=== PATIENT | male | born 1970 | race Two or more races ===

== ENCOUNTER 2021-03-19 00:41 | Inpatient (IN) | payer MEDICAID ==
[~2021-03-19] VITALS: Ht 172.7 cm; Wt 86.2 kg
[2021-03-19] VITALS (7 sets, daily range): BP systolic 107–130; BP diastolic 59–75
[2021-03-19] MEDS ORDERED: MAG HYDROX/AL HYDROX/SIMETH 30 ML UDC PO PRN (03:00)
[2021-03-19] MEDS ORDERED: ACETAMINOPHEN 325 MG TABLET PO PRN (03:00)
[2021-03-19] MEDS: ENOXAPARIN SODIUM 40 MG/0.4 ML DISP.SYRIN SQ SCH ×2 (03:25→20:51)
--- NOTE | 2021-03-19 04:24 | NUR ---
RECEIVED REPORT FROM [facility] NURSE, EDWAR, @0105. PT ARRIVED ON UNIT @0200 ACCOMPANIED BY 2 EMT'S. PT IS AOx4. DIVEHI SPEAKING. ABLE TO MAKE NEEDS KNOWN. ON RA AND TOLERATING WELL. NO SOB NOTED. NO S/SX OF RESPIRATORY DISTRESS NOTED. TELE MONITOR DETECTS SINUS RHYTHM WITH RATE OF 61. IV ACCESS IN RAC #20. IV IS INTACT, PATENT, AND FLUSHING WELL. NO COMPLAINTS OF PAIN AT THIS TIME. SAFETY PRECAUTIONS IN PLACE: BED IN LOWEST, LOCKED POSITION, BRAKES ON, SIDERAILS UPx2. CALL LIGHT AND TABLE WITHIN REACH. WILL CONTINUE TO MONITOR.
[2021-03-19] MEDS: BLOOD SUGAR DIAGNOSTIC 1 EACH STRIP IN SCH ×6 (05:59→21:26)
[2021-03-19 06:22] LABS: BASOPHILS % (AUTO) 0.7 % (0.0-2.0); EOSINOPHILS % (AUTO) 5.7 % (0.0-6.0); HEMATOCRIT 44 % (39-51); LYMPHOCYTES # (AUTO) 1.7 K/uL (0.8-4.8); LYMPHOCYTES % (AUTO) 34.6 % (20.0-44.0); MEAN CORPUSCULAR HGB CONC 34 g/dl (31.0-36.0); MEAN CORPUSCULAR VOLUME 90 fL (80-96); MONOCYTES # (AUTO) 0.4 K/uL (0.1-1.30); MONOCYTES % (AUTO) 7.2 % (2.0-12.0); NEUTROPHILS # (AUTO) 2.6 K/uL (1.8-8.9); NEUTROPHILS % (AUTO) 51.8 % (43.0-81.0); PLATELET COUNT (AUTO) 172 K/uL (150-450); RED BLOOD CELL COUNT(AUTO) 4.82 MIL/uL (4.5-6.0)
--- NOTE | 2021-03-19 07:03 | NUR ---
CONCIERGE CLOSING NOTES PT IN BED, RESTING WITH EYES CLOSED. PT IS AOx4. MONTSERRATIAN SPEAKING. ABLE TO MAKE NEEDS KNOWN. ON RA AND TOLERATING WELL. NO SOB NOTED. NO S/SX OF RESPIRATORY DISTRESS NOTED. TELE MONITOR DETECTS SINUS RHYTHM WITH RATE OF 61. IV ACCESS IN RAC #20. IV IS INTACT, PATENT, AND FLUSHING WELL. NO COMPLAINTS OF PAIN THROUGHOUT SHIFT. ALL NEEDS MET. PT KEPT CLEAN AND DRY. SAFETY PRECAUTIONS IN PLACE: BED IN LOWEST, LOCKED POSITION, BRAKES ON, SIDERAILS UPx2. CALL LIGHT AND TABLE WITHIN REACH. WILL ENDORSE TO ONCOMING SHIFT.
[2021-03-19 07:08] LABS: ALBUMIN 3.2 g/dL (3.4-5.0); BILIRUBIN,TOTAL 0.3 mg/dL (0.2-1.0); CREATININE 0.8 mg/dL (0.6-1.3); MAGNESIUM 2.1 mg/dL (1.8-2.4); PHOSPHORUS 3.2 mg/dL (2.5-4.9); POTASSIUM 3.7 mmol/L (3.5-5.1)
--- NOTE | 2021-03-19 07:10 | NUR ---
RN NOTES PATIENT SEEN IN BED RESTING, EYES CLOSED, ABLE TO BE AWAKENED. A/O X4, PRYDEINIG-SPEAKING BUT ABLE TO MAKE NEEDS KNOWN. BREATHING EVEN AND UNLABORED, TOLERATING ROOM AIR. IV LINE INTACT AND PATENT. AT BEDSIDE. PASSED NURSING SWALLOW EVAL PER FORECLOSURE FIELD INSPECTOR RN. PATIENT OBEYS COMMANDS AND ABLE TO MOVE EXTREMITIES W/O DIFFICULTY. SAFETY MEASURES IN PLACE. WILL CONTINUE TO MONITOR.
[2021-03-19 07:24] LABS: THYROID STIMULATING HORMONE 0.391 uIU/mL (0.358-3.74)
[2021-03-19] MEDS: ASPIRIN EC 325 MG TABLET.DR PO SCH (08:45)
[2021-03-19] MEDS: PANTOPRAZOLE 40 MG VIAL IV SCH (08:45)
[2021-03-19] MEDS: DOCUSATE SODIUM 100 MG CAPSULE PO SCH (08:45)
--- NOTE | 2021-03-19 09:04 | NUR ---
RN NOTES ST LISY, AT BEDSIDE FOR SWALLOW EVAL. PER ST, PASSED SWALLOW ST EVAL AND WILL CHANGE DIET TO CARDIAC REGULAR. CURRENTLY AT BEDSIDE W/ PATIENT.
--- NOTE | 2021-03-19 11:23 | NUR ---
RN NOTES PATIENT TAKEN TO RADIOLOGY FOR MRI VIA WHEELCHAIR, ACCOMPANIED BY 2 RAD TECHS.
--- NOTE | 2021-03-19 16:17 | NUR ---
RN NOTES STROKE EDUCATION HANDOUTS IN PATIENT'S SALAMATOF LANGUAGE PROVIDED TO PATIENT; IRISH-SPEAKING STAFF AT BEDSIDE TO HELP W/ TRANSLATION NEEDED.
--- NOTE | 2021-03-19 18:27 | NUR ---
RN NOTES PATIENT PROVIDED URINAL AT BEDSIDE AND INFORMED TO SAVE URINE SAMPLE FOR SPECIMEN COLLECTION.
--- NOTE | 2021-03-19 18:50 | NUR ---
RN NOTES PATIENT RESTING IN BED, AWAKE AND VERBALLY RESPONSIVE, NOT IN ACUTE DISTRESS. BREATHING EVEN AND UNLABORED, TOLERATING ROOM AIR. ON TELE MONITORING, READING OF NS, HR IN THE 60'S, NO CARDIAC DISTRESS. PATIENT STILL ABLE TO AMBULATE W/ STEADY GAIT. IV LINE INTACT AND PATENT. ABLE TO EAT LUNCH AND DINNER W/ NO SWALLOWING ISSUES. SAFETY MEASURES MAINTAINED. WILL ENDORSE TO OXYGEN SYSTEM TESTER RN FOR LASHANDA.
--- NOTE | 2021-03-19 19:30 | NUR ---
RN NOTES Received patient awake on bed a/ox4, uzbek speaking, ambulatory, SR on tele monitor HR-64, denies pain, no SOB< call light within reach, siderailsupx2, will continue to monitor
[2021-03-19] MEDS ORDERED: SIMVASTATIN 10 MG TABLET PO SCH (22:00)
[2021-03-20] VITALS: BP 107/61
[2021-03-20 04:00] VITALS: BP 107/64
--- NOTE | 2021-03-20 06:30 | NUR ---
rn notes awake, deneis pain, no SOB, call light within reach, siderailsupx2, pt. needs attended
--- NOTE | 2021-03-20 07:16 | NUR ---
MS RN OPENING NOTES RECEIVED PATIENT ON BED, A/O X3. PATIENT ON ROOM AIR WITH NO SIGNS OF ACUTE DISTRESS NOTED. PATIENT DOES NOT COMPLAIN OF PAIN OR DISCOMFORT AT THIS TIME. WITH IV ACCESS ON RIGHT AC G20, ON SALINE LOCK, PATENT AND INTACT. SAFETY MEASURES IN PLACE WITH BED ON LOWEST AND LOCKED POSITION, SIDE RAILS UP X2, CALL LIGHT AND TABLE WITHIN REACH. WILL CONTINUE TO MONITOR PATIENT.
[2021-03-20 08:00] VITALS: BP 108/60
[2021-03-20] MEDS: DOCUSATE SODIUM 100 MG CAPSULE PO SCH (08:28)
[2021-03-20] MEDS: ASPIRIN EC 325 MG TABLET.DR PO SCH (08:28)
[2021-03-20] MEDS: PANTOPRAZOLE 40 MG VIAL IV SCH (08:29)
[2021-03-20] MEDS: BLOOD SUGAR DIAGNOSTIC 1 EACH STRIP IN SCH ×3 (08:34→17:02)
[2021-03-20] MEDS ORDERED: ASPI-1169 PO (10:47)
[2021-03-20] MEDS ORDERED: ATOR20TA PO (10:47)
[2021-03-20 12:00] VITALS: BP 114/62
--- NOTE | 2021-03-20 13:48 | NUR ---
WHARF HAND NOTE ULTRASOUND DONE, AWAITING RESULTS.
--- NOTE | 2021-03-20 15:42 | NUR ---
SS Consult: SS consult requested for [place] Protocol. The pt. is a 50 year old male seeking medical attention for difficulty with speech, per pt. Interview was conducted in Albanian. The pt. is currently A&OX4 and appears well-groomed. Pt.'s mood is euthymic with full range affect. Pt. denies SI/HI and denies hallucinations.Pt. denies drug or ETOH use. The pt. states he is ambulatory. Pt. states he lives at home [[id number] [facility] [address]; [phone]] with his , Ting Larios [phone]. Per pt., he would like to return there once ready for discharge. Patient stated his son, Geovanny will be able to pick him up when ready. Pt. scored a 2 on the Post-Stroke Depression scale and SW provided stroke educational material and pt. accepted it. SW will be available as needed.
[2021-03-20 16:00] VITALS: BP 105/56
--- NOTE | 2021-03-20 16:50 | NUR ---
SAND PLANT ATTENDANT NOTES PATIENT FOR DISCHARGE ORDERED, HEALTH TEACHING DONE ORDERED, VERBALIZED UNDERSTANDING. IN STABLE CONDITION. AWAITING PICK-UP. NOT IN DISTRESS.
--- NOTE | 2021-03-20 18:57 | NUR ---
MS RN NOTE IV ACCESS REMOVED AND COVERED WITH DRESSING, DRY AND INTACT. PROCEDURE TOLERATED WELL. PATIENT DISCHARGED ORDERED. IN STABLE CONDITION. PATIENT ACCOMPANIED BY THIS NURSE ON A WHEELCHAIR TO LOBBY. ENDORSED ACCORDINGLY.
[2021-03-21] MEDS ORDERED: PANTOPRAZOLE 40 MG TABLET.DR PO SCH (07:30)
== END 2021-03-20 18:53 | disposition home or self-care (01) | DRG 47 ==
LOC: TELE 01:51
PROVIDERS: ADMIT Nurse Practitioner Acute Care; ATTEND Nurse Practitioner Acute Care
DX: G45.9 Transient cerebral ischemic attack, unspecified (principal); E44.1 Mild protein-calorie malnutrition; E83.51 Hypocalcemia; Z79.82 Long term (current) use of aspirin; Z87.891 Personal history of nicotine dependence; E04.2 Nontoxic multinodular goiter
CPT/HCPCS: 36415; 70551-TC; 76536-TC; 80053-TC; 80061-TC; 82962-TC; 83735-TC; 84100-TC; 84443-TC; 85025-TC; 87081-TC; 92526; 92611-TC; 93307-TC; 93880-TC; 97116-TC; 97530-TC; C9113; G0378; J1650

== ENCOUNTER 2024-05-14 01:55 | Emergency (ER) | payer MEDICAID, OTHER ==
[~2024-05-14] VITALS: Ht 175.3 cm; Wt 81.6 kg
[~2024-05-14 01:55] MED LIST: ASPI-1169 PO; ATOR20TA PO
[2024-05-14 02:29] VITALS: TEMP 97.8
[2024-05-14] MEDS ORDERED: KETO10TA2 PO (02:55)
[2024-05-14] MEDS ORDERED: CYCL5TAB PO (02:55)
[2024-05-14] MEDS ORDERED: KETOROLAC TROMETHAMINE INJ 30 MG/ML VIAL ONE (03:20)
[2024-05-14] MEDS ORDERED: CYCLOBENZAPRINE 10 MG TABLET ONE (03:20)
[2024-05-14] MEDS: CYCLOBENZAPRINE 10 MG TABLET PO ONE (03:23)
[2024-05-14] MEDS: KETOROLAC TROMETHAMINE INJ 30 MG/ML VIAL IM ONE (03:23)
[2024-05-14 03:33] VITALS: BP 124/72; O2SAT 99
== END 2024-05-14 03:33 | disposition home or self-care (01) ==
LOC: ER 01:57
DX: S13.4XXA Sprain of ligaments of cervical spine, initial encounter (principal); R51.9 Headache, unspecified; F17.200 Nicotine dependence, unspecified, uncomplicated; Z79.82 Long term (current) use of aspirin; Z79.899 Other long term (current) drug therapy; Z86.73 Personal history of transient ischemic attack (TIA), and cerebral infarction without residual deficits; X58.XXXA Exposure to other specified factors, initial encounter; Y93.89 Activity, other specified; Y92.89 Other specified places as the place of occurrence of the external cause; Y99.8 Other external cause status
CPT/HCPCS: 99283; 96372; J1885